=== PATIENT | female | born 1990 | race Caucasian/White ===

== ENCOUNTER 2019-08-25 22:53 | Emergency (ER) | payer BC ==
[~2019-08-25] VITALS: Ht 170.2 cm; Wt 61.4 kg
[~2019-08-25 22:53] MED LIST: NO HOME MEDICATIONS
[2019-08-25 23:12] VITALS: TEMP 97.8
[2019-08-25 23:34] LABS: BASO # 0.1 (0.0-0.2); BASO % 0.5 % (0.0-2.0); EOS # 0.2 (0.0-0.7); EOS % 1.9 % (0-4.0); GRAN # 5.7 (1.4-6.5); GRAN % 53.4 % (42.2-75.2); HEMATOCRIT 40.4 % (37.0-47.0); HEMOGLOBIN 13.7 g/dl (12.5-16.0); LYMPH # 4.1 (1.2-3.4); LYMPH % 38.6 % (20.0-51.0); MEAN CELL VOLUME 89 fl (80.0-100.0); MEAN CORPUSCULAR HEMOGLOBIN 30 pg (27.0-31.0); MEAN CORPUSCULAR HGB CONC 34 g/dl (33.0-37.0); MEAN PLATELET VOLUME 10.1 fl (7.4-10.4); MONO # 0.6 (0.1-0.6); MONO % 5.5 % (1.7-9.3); PLATELET COUNT 339 K/mm3 (130-400); RED BLOOD COUNT 4.55 M/mm3 (4.10-5.30); REDCELL DISTRIBUTION WIDTH-CV 12.4 % (11.5-14.5)
[2019-08-25 23:40] LABS: INR 1.1 (0.8-3.0); PROTHROMBIN TIME 12.7 SECONDS (9.7-12.8)
[2019-08-25 23:48] LABS: ALANINE AMINOTRANSFERASE 13 U/L (9-52); ALBUMIN 4.9 gm/dL (3.5-5.0); ALKALINE PHOSPHATASE 68 U/L (50-136); ANION GAP 14 mmol/L (7-16); AST,SGOT 24 U/L (15-37); BILIRUBIN,TOTAL 0.3 mg/dL (0.0-1.0); BLOOD UREA NITROGEN 22 mg/dL (7-17); CARBON DIOXIDE 21 mmol/L (22-30); CHLORIDE 102 mmol/L (98-107); CREATININE, serum 0.81 (0.52-1.25); GLUCOSE 174 mg/dL (74-106); POTASSIUM 3.8 mmol/L (3.4-5.0); SODIUM 137 mmol/L (137-145); TOTAL PROTEIN 8.4 gm/dL (6.4-8.2)
[2019-08-26 00:21] LABS: TROPONIN-I < 0.012 ng/mL (0.000-0.035)
[2019-08-26 00:49] LABS: D-DIMER < 200.00 ng/mLDDu (200-230)
[2019-08-26 02:50] VITALS: BP 102/65; PULSE 78
== END 2019-08-26 02:50 | disposition home or self-care (01) ==
LOC: COL.ER 22:53
PROVIDERS: Emergency Medicine
DX: F12.929 Cannabis use, unspecified with intoxication, unspecified (principal); R00.0 Tachycardia, unspecified
CPT/HCPCS: J2060; J7030

== ENCOUNTER 2021-09-20 18:45 | Emergency (ER) | payer BC ==
[~2021-09-20] VITALS: Ht 165.1 cm; Wt 54.5 kg
[~2021-09-20 18:45] MED LIST changes: +CIPRO 500MG TA500 MG PO
[2021-09-20 19:06] VITALS: TEMP 98.8
[2021-09-20 20:08] LABS: ARTERIAL BLD GAS O2 SATURATION 97.8 % (92-100); ARTERIAL BLD GAS TCO2 CT 25.6; ARTERIAL BLOOD GAS BASE EXCESS 0.8 (-2-2); ARTERIAL BLOOD GAS HCO3 24.4 meq/L (22-26); ARTERIAL BLOOD GAS PCO2 36.4 mmHg (35-45); ARTERIAL BLOOD GAS PO2 98.4 mmHg (80-100); ARTERIAL BLOOD GAS pH 7.45 (7.35-7.45)
[2021-09-20 20:35] LABS: BASO % 0.3 % (0.0-2.0); EOS # 0.1 K/mm3 (0.0-0.7); GRAN # 6.8 K/mm3 (1.4-6.5); HEMATOCRIT 42.8 % (37.0-47.0); HEMOGLOBIN 14.7 g/dl (12.5-16.0); LYMPH # 2.1 K/mm3 (1.2-3.4); LYMPH % 22.7 % (20.0-51.0); MEAN CELL VOLUME 87 fl (80.0-100.0); MEAN CORPUSCULAR HEMOGLOBIN 30 pg (27-31); MEAN CORPUSCULAR HGB CONC 34 g/dl (33.0-37.0); MEAN PLATELET VOLUME 9.9 fl (7.4-10.4); MONO # 0.4 K/mm3 (0.1-0.6); MONO % 3.8 % (1.7-9.3); PLATELET COUNT 376 K/mm3 (130-400); RED BLOOD COUNT 4.95 M/mm3 (4.10-5.30); REDCELL DISTRIBUTION WIDTH-CV 12.8 % (11.5-14.5)
[2021-09-20 20:56] LABS: ALANINE AMINOTRANSFERASE 13 U/L (0-55); ALBUMIN 4.5 gm/dL (3.5-5.0); ALKALINE PHOSPHATASE 55 U/L (40-150); ANION GAP 11 mmol/L (7-16); AST,SGOT 17 U/L (5-34); BILIRUBIN,TOTAL 0.3 mg/dL (0.2-1.2); BLOOD UREA NITROGEN 19 mg/dL (7-19); CALCIUM 9.5 mg/dL (8.4-10.2); CARBON DIOXIDE 25 mmol/L (22-29); CHLORIDE 104 mmol/L (98-107); CREATININE, serum 0.94 mg/dL (0.57-1.11); GLUCOSE 90 mg/dL (70-99); POTASSIUM 4.1 mmol/L (3.5-4.5); SODIUM 140 mmol/L (136-145); TOTAL PROTEIN 7.7 gm/dL (6.2-8.1)
[2021-09-20 21:04] LABS: TROPONIN-I < 0.010 ng/mL (0.00-0.033)
[2021-09-20 22:00] VITALS: BP 108/73; PULSE 68
== END 2021-09-20 22:00 | disposition home or self-care (01) ==
LOC: COL.ER 18:45
PROVIDERS: Physician Assistant
DX: T59.91XA Toxic effect of unspecified gases, fumes and vapors, accidental (unintentional), initial encounter (principal)

== ENCOUNTER 2023-04-09 21:55 | Emergency (ER) | payer SELFPAY ==
[~2023-04-09] VITALS: Ht 152.4 cm; Wt 56.8 kg
[~2023-04-09 21:55] MED LIST changes: +PREDNISONE20 MG PO; +PROAIR HFA0.09 MG/AC IH
[2023-04-09 21:59] VITALS: TEMP 97.8
[2023-04-09 22:59] VITALS: BP 119/81; PULSE 77
== END 2023-04-09 23:02 | disposition home or self-care (01) ==
LOC: COL.ER 21:55
DX: H69.92 Unspecified Eustachian tube disorder, left ear (principal); J00 Acute nasopharyngitis [common cold]; Z28.310 Unvaccinated for COVID-19

== ENCOUNTER 2023-06-26 21:26 | Emergency (ER) | payer SELFPAY ==
[~2023-06-26] VITALS: Ht 165.1 cm; Wt 54.5 kg
[2023-06-26 21:32] VITALS: TEMP 98.1
[2023-06-26 21:51] LABS: BASO # 0.1 K/mm3 (0.0-0.2); BASO % 0.7 % (0.0-2.0); EOS # 0.2 K/mm3 (0.0-0.7); EOS % 2.2 % (0.0-4.0); GRAN # 4.7 K/mm3 (1.4-6.5); GRAN % 54.7 % (42.2-75.2); HEMATOCRIT 43.5 % (37.0-47.0); HEMOGLOBIN 14.8 g/dl (12.5-16.0); LYMPH # 3.1 K/mm3 (1.2-3.4); LYMPH % 36.1 % (20.0-51.0); MEAN CELL VOLUME 91 fl (80.0-100.0); MEAN CORPUSCULAR HEMOGLOBIN 31 pg (27-31); MEAN CORPUSCULAR HGB CONC 34 g/dl (33.0-37.0); MEAN PLATELET VOLUME 10.1 fl (7.4-10.4); MONO # 0.5 K/mm3 (0.1-0.6); MONO % 6.1 % (1.7-9.3); PLATELET COUNT 324 K/mm3 (130-400); RED BLOOD COUNT 4.79 M/mm3 (4.10-5.30); REDCELL DISTRIBUTION WIDTH-CV 12.2 % (11.5-14.5)
[2023-06-26 22:08] LABS: ALANINE AMINOTRANSFERASE 15 U/L (0-55); ALBUMIN 4.5 gm/dL (3.5-5.0); ALKALINE PHOSPHATASE 63 U/L (40-150); ANION GAP 13 mmol/L (7-16); AST,SGOT 19 U/L (5-34); BILIRUBIN,TOTAL 0.4 mg/dL (0.2-1.2); BLOOD UREA NITROGEN 23 mg/dL (7-19); CALCIUM 9.7 mg/dL (8.4-10.2); CARBON DIOXIDE 22 mmol/L (22-29); CHLORIDE 105 mmol/L (98-107); CREATININE, serum 1.12 mg/dL (0.57-1.11); GLUCOSE 98 mg/dL (70-99); POTASSIUM 3.8 mmol/L (3.5-4.5); SODIUM 140 mmol/L (136-145); TOTAL PROTEIN 7.7 gm/dL (6.2-8.1)
[2023-06-26 22:15] LABS: TROPONIN-I < 0.010 ng/mL (0.00-0.033)
[2023-06-27 01:02] VITALS: BP 105/65; PULSE 67
== END 2023-06-27 01:02 | disposition home or self-care (01) ==
LOC: COL.ER 21:26
PROVIDERS: Emergency Medicine
DX: R07.89 Other chest pain (principal); M79.604 Pain in right leg; M79.605 Pain in left leg

== ENCOUNTER 2023-06-29 11:51 | Emergency (ER) | payer SELFPAY ==
[~2023-06-29] VITALS: Ht 165.1 cm; Wt 54.5 kg
[2023-06-29 11:56] VITALS: TEMP 97.8
[2023-06-29 12:17] LABS: BASO # 0.1 K/mm3 (0.0-0.2); BASO % 0.7 % (0.0-2.0); EOS # 0.1 K/mm3 (0.0-0.7); GRAN # 3.4 K/mm3 (1.4-6.5); GRAN % 49.4 % (42.2-75.2); HEMATOCRIT 41.3 % (37.0-47.0); HEMOGLOBIN 14.3 g/dl (12.5-16.0); LYMPH # 2.8 K/mm3 (1.2-3.4); LYMPH % 40.3 % (20.0-51.0); MEAN CELL VOLUME 88 fl (80.0-100.0); MEAN CORPUSCULAR HEMOGLOBIN 31 pg (27-31); MEAN CORPUSCULAR HGB CONC 35 g/dl (33.0-37.0); MEAN PLATELET VOLUME 9.9 fl (7.4-10.4); MONO # 0.5 K/mm3 (0.1-0.6); MONO % 7.3 % (1.7-9.3); PLATELET COUNT 339 K/mm3 (130-400); RED BLOOD COUNT 4.68 M/mm3 (4.10-5.30); REDCELL DISTRIBUTION WIDTH-CV 12.1 % (11.5-14.5)
[2023-06-29 12:41] LABS: ALANINE AMINOTRANSFERASE 14 U/L (0-55); ALBUMIN 4.3 gm/dL (3.5-5.0); ALKALINE PHOSPHATASE 61 U/L (40-150); ANION GAP 12 mmol/L (7-16); AST,SGOT 18 U/L (5-34); BILIRUBIN,TOTAL 0.7 mg/dL (0.2-1.2); BLOOD UREA NITROGEN 17 mg/dL (7-19); CALCIUM 9.8 mg/dL (8.4-10.2); CARBON DIOXIDE 20 mmol/L (22-29); CHLORIDE 106 mmol/L (98-107); CREATININE, serum 0.91 mg/dL (0.57-1.11); GLUCOSE 91 mg/dL (70-99); POTASSIUM 3.4 mmol/L (3.5-4.5); SODIUM 138 mmol/L (136-145); TOTAL PROTEIN 7.3 gm/dL (6.2-8.1)
[2023-06-29 12:49] LABS: TROPONIN-I < 0.010 ng/mL (0.00-0.033)
[2023-06-29] MEDS ORDERED: CLARITIN 1010 MG/TAB PO (13:10)
[2023-06-29 14:33] LABS: TRICYCLIC ANTIDEPRESS URINE NEGATIVE
[2023-06-29 14:47] VITALS: BP 121/74; PULSE 71
--- NOTE | 2023-06-29 14:48 | NUR ---
See merge for all medication, asessment, intervention, and vital sign times.
--- NOTE | 2023-06-29 16:00 | NUR ---
PT REPORTS CONCERN WITH DISCHARGE AND FOLLOW UP APPT MENTIONED TO THEM BY DR HUBER. MAAME, RN FROM CARDIOLOGY CALLED AND CONFIRMED THAT A PULMONOLGY REFERRAL IS GOING TO BE SENT TO [facility]. PT UPDATED. PT DENIES NEEDS AT THIS TIME
--- NOTE | 2023-06-29 18:01 | NUR ---
PT ON THE FLOOR APPROX 1515, AT BEDSIDE. IV TO RIGHT AC FLUSHES WELL. PT ON POST OP VITALS. RIGHT RADIAL CATH SITE CLEAN DRY AND INTACT, NO BLEEDING NOTED. COMPRESSION CUFF ON. PT DENIES SHORTNESS OF BREATH OR ANY DISCOMFORT AT THIS TIME. PT DENIES NEEDS. BED IN LOWEST POSITION, CALL LIGHT IN REACH.
--- NOTE | 2023-06-29 18:19 | NUR ---
IV AND TELEMETRY REMOVED. 3MLS OF AIR REMOVED FROM COMPRESSION CUFF. PT GIVEN DISCHARGE INSTRUCTIONS AND VERBALIZES UNDERSTANDING. REMAINING AIR REMOVED FORM CUFF, NO SIGNS OF BLEEDING NOTED. BANDAID APPLIED TO SITE. PT GETTING DRESSED AND NOTIFIED TO CALL THIS NURSE WHEN READY TO LEAVE
== END 2023-06-29 14:25 | disposition other institution (70) ==
LOC: COL.ER 11:51
PROVIDERS: Emergency Medicine; Physician Assistant
DX: R07.89 Other chest pain (principal)
CPT/HCPCS: J1644; J2250; J3010; Q9967

== ENCOUNTER 2023-08-30 23:32 | Emergency (ER) | payer BC ==
[~2023-08-30] VITALS: Ht 165.1 cm; Wt 46.8 kg
[~2023-08-30 23:32] MED LIST changes: +CLARITIN 1010 MG/TAB PO
[2023-08-30 23:48] VITALS: BP 130/88; TEMP 97.6
[2023-08-31] MEDS ORDERED: Sulfamethoxazole/Trimethoprim 800-160 MG TAB PO ONE (00:30)
[2023-08-31] MEDS ORDERED: Ibuprofen 400 MG TAB PO ONE (00:30)
[2023-08-31] MEDS ORDERED: BACTRIM DS 8001 TAB PO (00:40)
[2023-08-31 00:50] VITALS: PULSE 76
== END 2023-08-31 00:51 | disposition home or self-care (01) ==
LOC: COL.ER 23:32
DX: H60.11 Cellulitis of right external ear (principal); Z88.6 Allergy status to analgesic agent